=== PATIENT | male | born 1975 | race Caucasian/White ===

== ENCOUNTER 2018-04-29 11:10 | Inpatient (IN) | payer BC, OTHER ==
[~2018-04-29] VITALS: Ht 180.3 cm; Wt 78.0 kg
[2018-04-29] MEDS ORDERED: ISON300T4 PO (11:22)
[2018-04-29] MEDS ORDERED: ESCI10TA PO (11:23)
[2018-04-29] MEDS ORDERED: AMLO10TA6 PO (11:23)
[2018-04-29] MEDS ORDERED: MIRT30TA7 PO (11:24)
[2018-04-29] MEDS ORDERED: EMTR1TAB13 PO (11:26)
[2018-04-29] MEDS ORDERED: GABA-536 PO (11:27)
--- NOTE | 2018-04-29 11:40 | NUR ---
Pre-Admission Note Assessment done in intake office. Client doesn't appears intoxicated but appears anxious. He A/O x 4. He is ambulatory with steady gait, but complains of pain on feet 7/10, stating, "I was in a state of induced psychosis for at least 2-3 days and I just kept walking and walking." He has loud and pressured speech. He is here for medically supervised withdrawal from alcohol, Benzodiazepines and opioids. Client denies any hx of withdrawal-induced seizure. He has allergies PCN, Tramadol. VS BP= 135/96, P 113, RR 18, T 98.8, spO2 @ 95% on RA. Unit protocols explained. Client verbalized understanding. Admission process will continue in the unit.
[2018-04-29] MEDS ORDERED: PYRI50TA9 PO (12:02)
[2018-04-29] MEDS ORDERED: ACYC200C PO (12:02)
[2018-04-29] MEDS ORDERED: DIVA500T2 PO (12:02)
[2018-04-29] MEDS ORDERED: CLOT15CR63 TP (12:02)
[2018-04-29] MEDS ORDERED: BUTE12CR TP (12:02)
[2018-04-29] MEDS ORDERED: TEST75GE TP (12:02)
[2018-04-29] MEDS ORDERED: DIPH25TA62 PO (12:02)
[2018-04-29] MEDS ORDERED: one a day (12:02)
[2018-04-29] MEDS ORDERED: IBUP1TAB12 PO (12:02)
[2018-04-29] MEDS ORDERED: RALT400T PO (12:02)
[2018-04-29] MEDS ORDERED: TRET20CR TP (12:02)
--- NOTE | 2018-04-29 13:00 | NUR ---
ADMISSION Patient arrived on the unit at 1152, patient noted with unsteady gait, limping noted on one leg, per patient verbalized from walking around for days, his leg is sore. patient oriented to unit and educated regarding unit policies with good verbal understanding. Patient currently alert and oriented x4, BP: 135/96 HR: 113 R: 18 O2 SAT: 95% RA, T: 98.8. Patient admitted for medical supervised withdrawal of etoh/bzo/opiate. Patient also with substance use of: GHB, and Methamphetamine. Patient currently appears disheveled, unkempt, unshaven and noted with dirty finger nails and unwashed clothes. Patient has a anxious/worried facial expression noted with avoidant eye contact. Patient with flat affect and labile mood. Noted fidgety and exhibiting the following s/sx of withdrawal: elevated heart rate, flushed face, clammy skin, difficulty sitting still, fidgety, nasal congestion, moist eyes, yawning multiple times, tremors that can be felt, increase anxiety, agitation, chills, difficulty concentrating, increased emotional amplitude, and Perceptual disturbances. Patient with admitting COW score of: 11, and Admitting CIWA score of: 16. ALLERGIES: Penicillin, tree nuts, and tramadol SUBSTANCE USE HISTORY: 1. Xanax 2 mg PO daily, for the past two months, reports he first used at age of 17, typical withdrawal symptoms when not in use include: " i don't feel well, nausea, depressed, body aches" Last use: 3 or 4 days ago 2mg, as per patient. 2. ETOH-vodka 375ml 4-5 days a week, for the past 2 months, reports had his first drink at age 17, typical withdrawal symptoms include: I get hangovers, and feel sick to my stomach . Last use: 04/28/2018 375ml of vodka. 3. hydrocodone 90mg PO daily, for the past two months, reports he first used on/off since 2012. Typical withdrawal symptoms include: " I get extremely anxious, and i feel my blood pressure go up, and feel like in crawling out of my skin" Last used: 04/28/2018 90mg. 4. methamphetamine 1.5-2 grams smoked/IV daily for the past two moths, reports he first began using in 2012, last used: 04/28/2018, 1.5 grams. 5. GHB- 2.5 ml PO twice a week for the past two months, report he first began using in 2012, last used: 04/27/2018, 2.5ml. PRIMARY CARE PHYSICIAN: Dr. Ruby in [facility] PAST MEDICAL HISTORY: Anxiety diagnosed at age of 15-16, reports taking Depakote 500 mg TID, and Neurontin 400MG TID for anxiety. Depression diagnosed at age of 15-16, reports taking Lexapro 10mg daily. HIV positive Dx 2012, reports taking Isentress 400mg BID, and Descovy 200-25mg daily. Insomnia diagnosed 2012, reports taking Benadryl 25mg PO nightly , and Remeron 30mg PO nightly. PTSD DX: 2016 HTN DX: 2012- reports taking: Amlodipine 10mg PO QD. ADHD DX: Age 19 Asthma diagnosed as a child, Per patient Uses inhaler for asthma did not bring with him, verbalized I dont really have asthma attacks that often anymore, it probably happens once or twice a year History of: HEP C positive as per patient, I was hep c positive in 2013, but its been cleared now, I took medication for it Patient also reports taking Acyclovir 200mg PO daily for cold sore prevention, Vitamin B6 PO daily for supplement, AndroGel 75gram for low testosterone. Retin A face cream for skin care, Advil for cold as needed. Isoniazid 300mg( per patient was exposed and was prescribed Isoniazid to prevent TB, due to his HIV status). Brought from home Lotrimin, reports he does not use. PAST SURGICAL HISTORY: Lithotripsy in 2011 to remove kidney stones SEIZURE HISTORY: Patient reports History of seizures x3, during sobriety period, reports not related to drug use patient states They did studies and EEG test, and could not figure out why I was having seizures, All three I was sober and was not using anything, I didnt receive any medication because they couldn't figure out what was causing them Last seizure in 2017 as per patient. PSYCHIATRIC COMPLICATIONS: Patient verbalized: After I found out about my HIV diagnoses, I had many thoughts of committing suicide, I did attempt to commit suicide 4 times, by overdosing and ended up on life support, last year I had a bad overdose and was in renal failure and ended up in ICU, I allowed someone to inject me with a mixture of many drugs Patient denies currently feeling suicidal. Denies SI/HI. Denies having suicidal thoughts. Patient verbalized the past four days, I was in a methamphetamine psychosis, I was walking and walking for miles, I was hearing voices, I thought someone took my phone, the voices were telling me to do stupid random stuff, like telling me to walk then stop and turn around it was weird and I dont know how to describe it, it was bizarre Patient reports I'm still hearing some voices, but its gotten less Patient with positive auditory hallucinations, denies any visual hallucinations. Patient reports he does not know if he was placed on an involuntary psychiatric hospitalization. TREATMENT HISTORY: 7-8 treatment centers, most recently: 1. [facility] about a year ago, was there for 60 days. 2. [facility] in [place] in 2012, was there for 60 days 3. [facility] in 2015, was there for 30 days 4. [facility] in [place], [place] in 2014, was there for 30 days "I can't recall the names right now of the other ones" Patient reports he is here because "I need to stop using and get my head straightened out" I was weighing 200 pounds about a week in a half ago, and without trying because of my drug use I lost weight. Patient currently now weighs 172 lbs. Reports he does have a good support system, his family who he keeps in touch in [place] and friends that live here in [place]. Patient verbalized I first began drinking and using drugs because I realized it would help with my anxiety, and till this day it continues to help me cope with my anxiety, but I dont know when I started using meth, because that makes my anxiety worse Patient reports he decided to get help, because the psychosis I was in really scared me, then I realized I needed help. Patient reports he has never had success on quilting on his own, verbalized Jenny never attempted to try to stop using because since its so available, I just want to use, I do feel sick in the morning after drinking I do get pretty bad hang overs, but then I continue doing it Patient verbalized barriers for getting/staying sober are the stresses that are going on, I havent had stability going through the whole process of rehab, my biggest stumbling block I never have a stable job, or stable home, I dont have stability Patient reports consequences of using are Jenny lost everything, Jenny lost my friends, my family, my job, my home, pretty much everything Patient reports amount of times he has tried to get sober Jenny been to rehab 7 or 8 times, but I tend to relapse, I was sober for 1.5 years Patient reports positive history of blackouts, verbalized Jenny had a few, I was driving in [place] under the influence and by the time I realized it I was almost in [place], the other times I cant recall Patient verbalized I dont know what will be different this time, I cant answer that, but I do know my head needs to be straightened out again Patient was seen and examined by Dr. Chahal, with new admitting orders. MD was also given report to him, but nurse. Safety measures in place. Call light with in reach. Will continue to monitor.
[2018-04-29] MEDS: AMLODIPINE 10 MG TABLET PO SCH (13:45)
[2018-04-29] MEDS ORDERED: ISONIAZID 300 MG TABLET PO SCH (13:45)
[2018-04-29] MEDS ORDERED: Medication Not On Formulary EA (Pyridoxine Hcl (Vitamin B-6) 50 MG) PO SCH (13:45)
[2018-04-29 13:57] VITALS: BP 135/96
[2018-04-29] MEDS ORDERED: CLONIDINE HCL 0.1 MG TABLET PO PRN (14:00)
[2018-04-29] MEDS: FOLIC ACID 1 MG TABLET PO SCH (14:00)
[2018-04-29] MEDS ORDERED: DICYCLOMINE HCL 20 MG TABLET PO PRN (14:00)
[2018-04-29] MEDS ORDERED: HYDROXYZINE PAMOATE 25 MG CAPSULE PO PRN (14:00)
[2018-04-29] MEDS ORDERED: MAG HYDROX/AL HYDROX/SIMETH 30 ML LIQUID UDC PO PRN (14:00)
[2018-04-29] MEDS ORDERED: MAGNESIUM HYDROXIDE 30 ML LIQUID UDC PO PRN (14:00)
[2018-04-29] MEDS: THIAMINE HCL 100 MG TABLET PO SCH (14:00)
[2018-04-29] MEDS: PYRIDOXINE HCL 100 MG TABLET PO SCH (14:00)
[2018-04-29] MEDS ORDERED: IBUPROFEN 600 MG TABLET PO PRN (14:00)
[2018-04-29] MEDS ORDERED: LOPERAMIDE HCL 2 MG CAPSULE PO PRN ×2 (14:00)
[2018-04-29] MEDS ORDERED: THIAMINE HCL 200 MG/2 ML VIAL IM ONE (14:00)
[2018-04-29] MEDS ORDERED: diphenhydrAMINE 50 MG CAPSULE PO PRN (14:00)
[2018-04-29] MEDS: MULTIVITAMINS,THERAPEUTIC TABLET PO SCH (14:00)
[2018-04-29] MEDS ORDERED: ACETAMINOPHEN 325 MG TABLET PO PRN (14:00)
[2018-04-29] MEDS ORDERED: BUPRENORPHINE HCL 2 MG TAB.SUBL SL PRN (14:00)
[2018-04-29 14:37] LABS: *AMPHETAMINE, URINE POSITIVE (NEGATIVE); *BARBITURATE, URINE NEGATIVE (NEGATIVE); *CANNABINOID, URINE NEGATIVE (NEGATIVE); *COCCAINE, URINE NEGATIVE (NEGATIVE); *OPIATE, URINE NEGATIVE (NEGATIVE); *PHENCYCLIDINE SCREEN,URINE NEGATIVE (NEGATIVE)
[2018-04-29 14:38] LABS: BASOPHILS % (AUTO) 0.5 % (0.0-2.0); EOSINOPHILS # (AUTO) 0.1 K/uL (0.0-0.7); EOSINOPHILS % (AUTO) 1.7 % (0.0-7.0); HEMATOCRIT 48.3 % (36.7-47.1); HEMOGLOBIN 16.8 g/dL (12.5-16.3); LYMPHOCYTES # (AUTO) 1.7 K/uL (20.0-40.0); LYMPHOCYTES % (AUTO) 19.7 % (20.5-51.5); MEAN CORPUSCULAR HEMOGLOBIN 31.2 uug (23.8-33.4); MEAN CORPUSCULAR HGB CONC 35 g/dL (32.5-36.3); MEAN CORPUSCULAR VOLUME 89.7 fL (73.0-96.2); MONOCYTES # (AUTO) 1.2 K/uL (2.0-10.0); MONOCYTES % (AUTO) 13.7 % (0.0-11.0); NEUTROPHILS # (AUTO) 5.5 K/uL (1.8-8.9); NEUTROPHILS % (AUTO) 64.4 % (38.5-71.5); PLATELET COUNT (AUTO) 327 K/uL (152-348); RED BLOOD CELL COUNT(AUTO) 5.38 MIL/uL (4.06-5.63); WHITE BLOOD COUNT (AUTO) 8.6 K/uL (3.6-10.2)
[2018-04-29 14:50] LABS: ALANINE AMINOTRANSFERASE 48 U/L (16-63); ALKALINE PHOSPHATASE 95 U/L (50-136); AMYLASE 64 U/L (25-115); ASPARTATE AMINOTRANSFERASE 58 U/L (15-37); BILIRUBIN,TOTAL 2.1 mg/dL (0.2-1.0); CARBON DIOXIDE 24 mmol/L (21-32); CHLORIDE 100 mmol/L (98-107); CREATININE 1.4 mg/dL (0.6-1.3); GLUCOSE 91 mg/dL (74-106); LIPASE 801 U/L (73-393); MAGNESIUM 2.4 mg/dL (1.8-2.4); POTASSIUM 3.7 mmol/L (3.5-5.1); TOTAL PROTEIN, SERUM 8.3 g/dL (6.4-8.2); UREA NITROGEN, BLOOD 28 mg/dL (7-18)
--- NOTE | 2018-04-29 14:56 | NUR ---
PRN ATIVAN Patient presented with: elevated heart rate, flushed face, clammy skin, difficulty sitting still, fidgety, tremors that can be felt, increase anxiety, agitation, chills, difficulty concentrating, increased emotional amplitude, elevated heart rate and Perceptual disturbances, administered ativan 1 mg PO as ordered for s/sx of withdrawal. Will continue to monitor.
[2018-04-29 15:08] LABS: ETHANOL < 3 MG/DL (0-0)
[2018-04-29 15:53] LABS: THYROID STIMULATING HORMONE 0.661 mIU/mL (0.358-3.740)
--- NOTE | 2018-04-29 15:56 | NUR ---
ATIVAN REASSESSMENT Medication effective, patient reports decrease in perceptual disturbances, current ciwa score of: 15, will continue to monitor.
--- NOTE | 2018-04-29 16:30 | NUR ---
MD COMMUNICATION Isentress held at scheduled time of 1345, due to patient is scheduled to receive at 1700, per MD ok to adminstere at 1700 and hold current dose. Held folic Acid, Multivitamin, Vitamin b1, and vitamin b6, per MD to start medications tomorrow morning.
[2018-04-29 17:07] VITALS: BP 140/97
[2018-04-29] MEDS: ISONIAZID 100 MG TABLET PO SCH (17:09)
[2018-04-29] MEDS: ACYCLOVIR 200 MG CAPSULE PO SCH ×2 (17:09→21:16)
--- NOTE | 2018-04-29 17:11 | NUR ---
PRN SUBUTEX elevated heart rate, flushed face, clammy skin, difficulty sitting still, fidgety, nasal congestion, moist eyes, yawning multiple times, tremors that can be felt, increase anxiety, agitation, chills, difficulty concentrating, increased emotional amplitude, Cow score of: 15, Administered Subutex 4mg SL as ordered, will monitor effectiveness.
--- NOTE | 2018-04-29 17:41 | NUR ---
SUBUTEX REASSESSMENT Medication effective, decrease in COW score to 14, due to decrease heart rate, will continue to monitor.
[2018-04-29] MEDS: LORAZEPAM 1 MG TABLET PO PRN ×2 (18:38→21:58)
--- NOTE | 2018-04-29 19:05 | NUR ---
PSYCHIATRIST COMMUNICATION Patient verbalized that he has difficulty sleeping if he does not take his Remeron, call placed to Dr. Miller, per MD segovia for one time order of Remeron 50mg PO for sleep, Psychiatrist is unable to enter order into [facility] at this time, order was read back and verified, noted and carried out. Addendum: 04/29/18 at 1921 by CHICA SKELTON LVN clarification: Remeron 30 mg PO.
--- NOTE | 2018-04-29 19:06 | NUR ---
END OF SHIFT Continues under close observation, admitting Dx: etoh/bzo withdrawal. Patient was started on a 3 day Valium taper. First dose administered during shift. Patient noted isolative, prefers to stay in room, encouraged to socialize with peers, and attend group therapies/sessions to learn new coping skills to prevent relapse. Was noted during shift with blocking thoughts, and avoidant eye contact. Has sad and worried facial expression, flat affect, and labile mood. Patient presented exhibiting the following s/sx of withdrawal: fine tremors, barely sweating, increase anxiety and agitation, fidgety, fidgety, restless, difficulty concentrating, emotional volatility, increase emotional amplitude with last CIWA score of: 10, Received no PRN medications during shift. Patient refused PPD during shift reports he got it a few months ago, and it was negative. Safety measures are in place. Call light with in reach, will continue to monitor. Patient endorsed to police shift commander nurse, all pertinent information discussed. Addendum: 04/29/18 at 1908 by CHICA SKELTON LVN clarification: note above is for wrong patient, disregard.
--- NOTE | 2018-04-29 19:07 | NUR ---
END OF SHIFT Patient continues under close observation, admitting today with admitting diagnoses of bzo/etoh/opiate withdrawal. Patient is scheduled to begin a 5 day Ativan taper and 3 day Subutex taper tomorrow morning. Patient has medication available for s/sx of withdrawal as needed. Was administered PRN: Ativan 1mg and Subutex 4mg sl as ordered. Encouraged to increase PO fluid intake as tolerated. Patient noted exhibiting the following s/sx of withdrawal: elevated heart rate, flushed face, clammy skin, difficulty sitting still, fidgety, nasal congestion, moist eyes, yawning multiple times, tremors that can be felt, increase anxiety, agitation, chills, difficulty concentrating, increased emotional amplitude, and Perceptual disturbances, abdominal cramps. Patient with admitting COW last score of: 13, and Admitting CIWA score of: 15. Safety measures are in place. Will continue to monitor. Patient endorsed to restaurant shift leader nurse, all pertinent information was discussed.
--- NOTE | 2018-04-29 19:15 | NUR ---
Start of Shift Note: Patient is a 43 y.o male admitted on 04/29/18 for medically supervised withdrawal from Xanax, ETOH, & [place] use. Patient also reported use of Meth and GHB. Pt has a anxious/irritable mood. Appears disheveled andunkempt. Pt presents with anxiety, agitation, sweating, restlessness, and fine tremors. Pt reported mild auditory hallucinations, pt pt he hears some noises in the room. Pt to be started on a Subutex and ativan taper tomorrow. Last COWS 14 CIWA 15. Pt received PRN Ativan and Subutex during day shift. PRN medications available to manage symptoms of withdrawal. Pt stable at this time. Explained to patient current plan of care of the night and medication regimen. Both side rails up. Bed in the lowest position. Call light within pts reach. Will continue to monitor patient.
[2018-04-29 20:00] VITALS: BP 130/93
[2018-04-29] MEDS ORDERED: MIRTAZAPINE 15 MG TABLET PO ONE (21:00)
[2018-04-29] MEDS: ONDANSETRON ODT 4 MG TAB.RAPDIS SL PRN (22:00)
--- NOTE | 2018-04-29 22:00 | NUR ---
PRN Ativan/benadryl/Zofran Patient presents with nausea, anxiety, restlessness, sweating, fine tremors. Pt also requested for medication for sleep. PRN Ativan, Benadryl & Zofran administered as ordered. Will monitor for effectiveenss,
--- NOTE | 2018-04-29 23:00 | NUR ---
PRN reassessment Patient in bed and verbalized decreased in anxiety, restlessness & improved nausea. PRn medication effective. Will continue to monitor.
[2018-04-30] VITALS: BP 128/83
[2018-04-30 04:00] VITALS: BP 136/86
[2018-04-30 04:06] LABS: HEPATITIS B SURFACE AG Negative (Negative)
--- NOTE | 2018-04-30 07:06 | NUR ---
End of Shift Note: Patient is a 43 y.o male admitted on 04/29/18 for medically supervised withdrawal from Xanax, ETOH, & [place] use. Pt presents with anxiety, agitation, sweating, restlessness, and fine tremors. Pt reported mild auditory hallucinations. Pt to be started on a Subutex and Ativan taper today. Last CIWA 10. Pt received PRN Ativan, Benadryl & Zofran during my shift and all were effective. Pt remained stable and vitals noted WNL. All due medications given and all needs attended. Pt slept for a total of 4 hours. Fluid intake: 1210 ml. Voided 2x with no BM noted. Safety measures in place. Will endorse pt to day shift nurse.
--- NOTE | 2018-04-30 08:15 | NUR ---
BEGINNING OF SHIFT Patient endorsement report received from pan helper nurse, all pertinent information was discussed. Patient admitted yesterday during day shift, with admitting Dx: etoh/opiate/bzo withdrawal. patient is scheduled to begin a 3 day Subutex taper and 5 day Ativan taper. Per pan helper patient received PRN: Ativan, Benadryl and Zofran, per pan helper medications were effective. Patient with CIWA score of: 15, and COW score of: 14. Patient with difficulty falling asleep, and difficulty staying asleep. Slept for 4 hours. patient received awake, alert and oriented x4, presented with flat affect, and anxious mood. Patient was educated regarding plan of care for the day and medication regimen with good verbal understanding. will continue to monitor.
[2018-04-30] MEDS ORDERED: 3 DAY TAPER BUPRENORPHINE -SERENITY PROTOCOL SL PRN (09:00)
[2018-04-30] MEDS ORDERED: TUBERCULIN,PURIF.PROT.DERIV. 5 TU/0.1 ML TEST ID ONE (09:00)
[2018-04-30] MEDS ORDERED: 5 DAY TAPER OF LORAZEPAM -SERENITY PROTOCOL PO PRN (09:00)
--- NOTE | 2018-04-30 09:00 | NUR ---
COW/CIWA ASSESSMENT Patient in room, noted with avoidant eye contact, flat affect, sad/worried facial expression, and depressed/anxious mood. Patient noted exhibiting the following s/sx of withdrawal: elevated heart rate, flushed, difficulty sitting still, enlarged pupils, arthralgias, myalgias, moist eyes, nasal congestion, abdominal cramps, irritability, increase anxiety, perceptual disturbances. Patient with cow score of: 14, and ciwa score of: 15, as per patient continues to hear a muffled sound in his ears. Calming reassurance was provided, administered scheduled medications as ordered, MD aware of assessment scores. Will continue to monitor.
[2018-04-30 09:18] VITALS: BP 139/91
[2018-04-30] MEDS: LORAZEPAM 1 MG TABLET PO SCH ×4 (09:18→21:51)
[2018-04-30] MEDS: THIAMINE HCL 100 MG TABLET PO SCH (09:18)
[2018-04-30] MEDS: FOLIC ACID 1 MG TABLET PO SCH (09:18)
[2018-04-30] MEDS: MULTIVITAMINS,THERAPEUTIC TABLET PO SCH (09:18)
[2018-04-30] MEDS: ACYCLOVIR 200 MG CAPSULE PO SCH ×2 (09:19→21:52)
[2018-04-30] MEDS: AMLODIPINE 10 MG TABLET PO SCH (09:19)
[2018-04-30] MEDS: BUPRENORPHINE HCL 2 MG TAB.SUBL SL SCH ×2 (09:19→21:52)
[2018-04-30] MEDS: PYRIDOXINE HCL 100 MG TABLET PO SCH (09:19)
[2018-04-30] MEDS: ISONIAZID 100 MG TABLET PO SCH (09:30)
--- NOTE | 2018-04-30 10:00 | NUR ---
MD COMMUNICATION Relayed to Dr. Chahal that patient refused PPD, patient states " My doctor said I cannot have further TB skin test done, because since I was exposed to TB, it will show positive". Dr. Chahal was notified, patient currently also with ongoing Isoniazid as ordered. currently patient is afebrile, no cough/congestion noted. Per Dr. Chahal patient recently had CXR done and it was negative, no new orders at this time, will continue to monitor. Patient also refused, Isentress 400mg PO that was ordered in the AM, per patient MD who prescribed him that medication told him that he needs to take Isentress and Descovy together, patient did not bring home medication Descovy with him. MD also notified.
[2018-04-30 12:47] VITALS: BP 140/95
--- NOTE | 2018-04-30 13:00 | NUR ---
COW/CIWA ASSESSMENT Patient presents with the following s/sx: elevated heart rate, c/o chills, difficulty sitting still, enlarged pupils, arthralgias, myalgias, moist eyes, nasal congestion, abdominal cramps, irritability, increase anxiety, perceptual disturbances. Patient with cow score of: 14, and ciwa score of: 14, as per patient continues to hear a muffled sound in his ears. Calming reassurance was provided, administered scheduled medications as ordered, MD aware of assessment scores. Will continue to monitor.
[2018-04-30 17:00] VITALS: BP 153/81
--- NOTE | 2018-04-30 17:00 | NUR ---
COW/CIWA ASSESSMENT Patient presents with the following s/sx: elevated heart rate, c/o chills, difficulty sitting still, enlarged pupils, arthralgias, myalgias, moist eyes, nasal congestion, abdominal cramps, irritability, increase anxiety, perceptual disturbances. Patient with cow score of: 13, and ciwa score of: 14, as per patient continues to hear a muffled sound in his ears. Calming reassurance was provided, administered scheduled medications as ordered, MD aware of assessment scores. Will continue to monitor.
--- NOTE | 2018-04-30 19:14 | NUR ---
END OF SHIFT Patient alert and oriented x4, during shift. Continues under close observation, admitting Dx: etoh/opiate/bzo withdrawal. Patient began 1st day of 3 day Subutex taper and 1st day of 5 day Ativan taper, scheduled medications were administered as ordered. Relayed to Dr. Chahal that patient refused PPD, patient states " My doctor said I cannot have further TB skin test done, because since I was exposed to TB, it will show positive". Dr. Chahal was notified, patient currently also with ongoing Isoniazid as ordered. currently patient is afebrile, no cough/congestion noted. Per Dr. Chahal patient recently had CXR done and it was negative, no new orders at this time, will continue to monitor. Patient also refused, Isentress 400mg PO that was ordered as an AM and PM dose, per patient MD who prescribed him that medication told him that he needs to take Isentress and Descovy together, patient did not bring home medication Descovy with him. Patient was assisted by major case detective to re order medication. . Encouraged to increase PO fluid intake as tolerated. Patient noted exhibiting the following s/sx of withdrawal: elevated heart rate, flushed, difficulty sitting still, enlarged pupils, arthralgias, myalgias, moist eyes, nasal congestion, abdominal cramps, irritability, increase anxiety, perceptual disturbances. Patient with last cow score of: 14, and ciwa score of: 15, Safety measures are in place. Will continue to monitor. Patient endorsed to shift engineer nurse, all pertinent information was discussed. Addendum: 04/30/18 at 1917 by CHICA SKELTON LVN clarification: Last COW score of: 13, and Last CIWA score of: 14.
--- NOTE | 2018-04-30 19:53 | NUR ---
START OF SHIFT NOTE Rcvd report from outogin nurse. Pt is a 43 y/o male A/O to person, place, time, and purpose. Pt was admitted for medically supervised withdrawal from Benzodiazepines and ETOH. Pt is on day 1 of a 5 day Ativan and 3 day Subutex taper. Pt has been presenting w/ flushing, restlessness, body aches, stuffiness, abdominal cramps, tremors, sweats, lethargy, anxiety, depressed and withdrawn mood, and a flat affect. Pt rcvd no PRN medications during previous shift. Last CIWA 14 and COWS 13 @ 1600. Call light is within reach. Pt will continue to be monitored and needs met.
[2018-04-30 20:06] VITALS: BP 144/76
--- NOTE | 2018-04-30 20:09 | NUR ---
CIWA AND COWS ASSESSMENT CIWA 14 and COWS 13. Pt has been presenting w/ flushing, restlessness, body aches, stuffiness, abdominal cramps, tremors, sweats, lethargy, anxiety, depressed and withdrawn mood, and a flat affect. V/S: T:98.0, P:90, RR:16, SPO2:98, BP:144/70.
[2018-04-30] MEDS: MIRTAZAPINE 15 MG TABLET PO SCH (21:51)
[2018-04-30] MEDS: ARIPIPRAZOLE 5 MG TABLET PO SCH (21:59)
--- NOTE | 2018-05-01 00:07 | NUR ---
CIWA AND COWS DEFERRED. V/S REFUSED Pt is in bed w/ her eeys closed. Pt's respirations are unlabored and even.
--- NOTE | 2018-05-01 04:29 | NUR ---
CIWA AND COWS DEFERRED. V/S REFUSED Pt is in bed w/ his eyes closed. Pt's respirations are unlabored and even.
--- NOTE | 2018-05-01 07:00 | NUR ---
END OF SHIFT NOTE Endorsed pt to oncoming nurse. Pt is a 43 y/o male A/O to person, place, time, and purpose. Pt was admitted for medically supervised withdrawal from Benzodiazepines and ETOH. Pt completed day 1 of a 5 day Ativan and 3 day Subutex taper. Pt continues presenting w/ flushing, restlessness, body aches, stuffiness, abdominal cramps, tremors, sweats, lethargy, anxiety, depressed and withdrawn mood, and a flat affect. Pt rcvd no PRN medications during current shift. Pt denies any S/I or H/I. Pts fluid intake was 500ml and he slept for 7 hrs. Last CIWA 14 and COWS 13 @ 1999. Call light is within reach.
--- NOTE | 2018-05-01 07:30 | NUR ---
Start of shift note; Received report from night nurse. Patient is a 43 year old male admitted on 04/29/18 for Benzodiazepine, ETOH, Opiate withdrawal. Patient was placed on a 5 day Ativan and 3 day Subutex taper. Patient presented with anxiety, complaining of mild nausea, stomach cramps, fatigue, muscle aches, malaise, anhedonia, anxiety, intermittent sweats, restless legs. Educated patient regarding the importance of compliance to treatment and medication regime. Encouraged patient to participate in group activities and therapies. All safety measures secured. Will continue to monitor patient.
[2018-05-01 08:00] VITALS: BP 123/86
--- NOTE | 2018-05-01 08:00 | NUR ---
COWS/CIWA Assessment; Patient's COWS score is 18 and CIWA score is 17 manifested by anxiety, stomach cramps, tremors, restless legs, racing thoughts, inability to concentrate, fatigue and malaise. Patient is on 3 day Subutex and 5 day Ativan taper to help reduce withdrawal symptoms. Will continue to monitor patient.
[2018-05-01] MEDS: LORAZEPAM 1 MG TABLET PO SCH ×3 (08:47→21:13)
[2018-05-01] MEDS: BUPRENORPHINE HCL 2 MG TAB.SUBL SL SCH ×3 (08:47→21:14)
[2018-05-01] MEDS: AMLODIPINE 10 MG TABLET PO SCH (08:47)
[2018-05-01] MEDS: FOLIC ACID 1 MG TABLET PO SCH (08:47)
[2018-05-01] MEDS: THIAMINE HCL 100 MG TABLET PO SCH (08:47)
[2018-05-01] MEDS: ISONIAZID 100 MG TABLET PO SCH (08:47)
[2018-05-01] MEDS: PYRIDOXINE HCL 100 MG TABLET PO SCH (08:48)
[2018-05-01] MEDS: MULTIVITAMINS,THERAPEUTIC TABLET PO SCH (08:48)
[2018-05-01] MEDS: ACYCLOVIR 200 MG CAPSULE PO SCH ×2 (08:48→21:13)
[2018-05-01] MEDS ORDERED: CLON-418 PO (10:07)
[2018-05-01] MEDS ORDERED: METO75TA PO (10:07)
[2018-05-01] MEDS: DESCOVY PO SCH (10:46)
[2018-05-01 12:00] VITALS: BP 120/76
--- NOTE | 2018-05-01 12:00 | NUR ---
COWS/CIWA Assessment; Patient continues to have COWS score of 18 and CIWA score of 17 manifested by anxiety, stomach cramps, tremors, restless legs, racing thoughts, inability to concentrate, fatigue and malaise. Patient is on 3 day Subutex and 5 day Ativan taper to help reduce withdrawal symptoms. Will continue to monitor patient.
[2018-05-01] MEDS ORDERED: LIDOCAINE VISCUS 2% 15 ML UDC MM PRN (15:45)
[2018-05-01 16:00] VITALS: BP 122/72
--- NOTE | 2018-05-01 16:00 | NUR ---
COWS/CIWA Assessment; Patient continues to have COWS score of 15 and CIWA score of 14 manifested by anxiety, stomach cramps, tremors, restless legs, racing thoughts, inability to concentrate, fatigue and malaise. Patient is on 3 day Subutex and 5 day Ativan taper to help reduce withdrawal symptoms. Will continue to monitor patient.
--- NOTE | 2018-05-01 18:49 | NUR ---
End of shift note; Patient is AOX4, presented with anxiety, agitation, stomach cramps, inability to concentrate, muscle aches, generalized discomfort, tremors, diaphoresis, nausea. Patient remained compliant with treatment plan and medication regime. Patient participated in group activities and therapies. Patient's last COWS score is 15 and CIWA of 14 at 1600. No PRN medications given. All safety measures secured. Met all needs.
--- NOTE | 2018-05-01 19:43 | NUR ---
START OF SHIFT NOTE Rcvd report from outgoing nurse. Pt is a 43 male A/O to person, place, time, and purpose. Pt was admitted for medically supervised withdrawal from ETOH, Benzodiazepines, and Opiates. Pt is on day 2 of a 3 day Subutex and 5 day Ativan taper. Pt has been presenting w/ abdominal cramping, sweats, body aches, lethargy, anxiety, restlessness, depressed and withdrawn mood, and blunt affect. Pt rcvd no PRN medications during pervious shift. Last CIWA 15 and COWS 16 @ 1600. Call light is within reach. Pt will continue to be monitored and needs met.
[2018-05-01 20:10] VITALS: BP 137/89
--- NOTE | 2018-05-01 20:10 | NUR ---
CIWA AND COWS ASSESSMENT CIWA 15 and COWS 16. Pt has been presenting w/ abdominal cramping, sweats, body aches, lethargy, anxiety, restlessness, depressed and withdrawn mood, and blunt affect. V/S: T:97.9, P:101, RR:16, SPO2:96, BP:137/89.
[2018-05-01] MEDS: ARIPIPRAZOLE 5 MG TABLET PO SCH (21:13)
[2018-05-01] MEDS: MIRTAZAPINE 15 MG TABLET PO SCH (21:14)
--- NOTE | 2018-05-02 00:06 | NUR ---
CIWA AND COWS DEFERRED. V/S REFUSED Pt is in bed w/ his eyes closed. pt's respirations are unlabored and even.
[2018-05-02 06:40] LABS: BASOPHILS % (AUTO) 0.7 % (0.0-2.0); EOSINOPHILS # (AUTO) 0.3 K/uL (0.0-0.7); EOSINOPHILS % (AUTO) 4.8 % (0.0-7.0); HEMATOCRIT 42.2 % (36.7-47.1); HEMOGLOBIN 14.8 g/dL (12.5-16.3); MEAN CORPUSCULAR HEMOGLOBIN 31.5 uug (23.8-33.4); MEAN CORPUSCULAR HGB CONC 35 g/dL (32.5-36.3); MEAN CORPUSCULAR VOLUME 90.3 fL (73.0-96.2); MONOCYTES # (AUTO) 0.7 K/uL (2.0-10.0); MONOCYTES % (AUTO) 12.5 % (0.0-11.0); NEUTROPHILS # (AUTO) 2.3 K/uL (1.8-8.9); PLATELET COUNT (AUTO) 275 K/uL (152-348); RED BLOOD CELL COUNT(AUTO) 4.68 MIL/uL (4.06-5.63); WHITE BLOOD COUNT (AUTO) 5.3 K/uL (3.6-10.2)
[2018-05-02 06:52] LABS: BILIRUBIN,TOTAL 0.5 mg/dL (0.2-1.0); CREATININE 0.9 mg/dL (0.6-1.3); POTASSIUM 3.4 mmol/L (3.5-5.1); TOTAL PROTEIN, SERUM 6.9 g/dL (6.4-8.2)
--- NOTE | 2018-05-02 07:11 | NUR ---
END OF SHIFT NOTE Endorsed pt to oncoming nurse. Pt is a 43 male A/O to person, place, time, and purpose. Pt was admitted for medically supervised withdrawal from ETOH, Benzodiazepines, and Opiates. Pt completed day 2 of a 3 day Subutex and 5 day Ativan taper. Pt continues presenting w/ abdominal cramping, sweats, body aches, lethargy, anxiety, restlessness, depressed and withdrawn mood, and blunt affect. Pt denies any S/I or H/I. Pt rcvd no PRN medications during pervious shift. Pts fluid intake was 500ml and he slept for 8 hrs. Last CIWA 15 and COWS 16 @ 2000. Call light is within reach.
--- NOTE | 2018-05-02 07:40 | NUR ---
START OF SHIFT Endorse rcvd from ongoing nurse, client is in bed, on his L side, he appears with flushed face, clammy skin. he sounds asleep, easy to arouse, RR 16, even, non-labored. Room is unkept, several opened bottles of water, juice and snacks noted at bedside table. Last CIWA 15 / COWS 16 @ 1999. Client had an uneventful night, he slept 8 hrs. Seizure precautions in place. Call light within reach.
[2018-05-02 08:02] VITALS: BP 128/81
[2018-05-02] MEDS: LORAZEPAM 1 MG TABLET PO SCH ×4 (08:54→20:20)
[2018-05-02] MEDS: DESCOVY PO SCH (08:55)
[2018-05-02] MEDS: ISONIAZID 100 MG TABLET PO SCH (08:55)
[2018-05-02] MEDS: AMLODIPINE 10 MG TABLET PO SCH (08:55)
[2018-05-02] MEDS: FOLIC ACID 1 MG TABLET PO SCH (08:55)
[2018-05-02] MEDS: MULTIVITAMINS,THERAPEUTIC TABLET PO SCH (08:55)
[2018-05-02] MEDS: THIAMINE HCL 100 MG TABLET PO SCH (08:55)
--- NOTE | 2018-05-02 08:55 | NUR ---
WA 14 / COWS 15 Client is in room, he presents with anxious mood, restlessness, avoidant gaze, flushed face, clammy skin, tremors felt, goosebump, difficulty concentrating. Client report feeling anious, a sense of panic, irritable, poor appetite, nausea, stomach cramps,, chill, cold, and sweats. Schedule Subutex 2 mg SL, Ativan 1mg PO administered. Call light within reach.
[2018-05-02] MEDS: ACYCLOVIR 200 MG CAPSULE PO SCH ×2 (08:56→20:19)
[2018-05-02] MEDS: PYRIDOXINE HCL 100 MG TABLET PO SCH (08:56)
[2018-05-02] MEDS ORDERED: BUPRENORPHINE HCL 2 MG TAB.SUBL SL SCH (09:00)
--- NOTE | 2018-05-02 11:00 | NUR ---
MD Notification Lab values DOS 04/29/18 lipase 801 DOS 05/02/18 Potassium 3.4 No new orders at this time
[2018-05-02 12:00] VITALS: BP 140/85
--- NOTE | 2018-05-02 12:05 | NUR ---
CIWA / 10 Client continues to present with anxiety, mb increase P 94, BP 140/85, clammy skin, and flushed face. Client reports feeling feverish, chills, cold, fatigue, poor appetite, sweaty, and restless. Ativan 1mg PO administered,. Call light within reach.
[2018-05-02] MEDS ORDERED: RETIN A 0.05% TOP PRN (14:00)
--- NOTE | 2018-05-02 14:06 | NUR ---
Therapist prompted client to attend all group therapy sessions and client agreed to attend the upcoming group for this afternoon.
[2018-05-02] MEDS: METOPROLOL TARTRATE 50 MG TABLET PO SCH ×2 (14:07→20:19)
[2018-05-02] MEDS ORDERED: POTASSIUM CHLORIDE 20 MEQ TAB.PRT.SR PO ONE (15:00)
[2018-05-02 16:25] VITALS: BP 140/90
[2018-05-02] MEDS: ONDANSETRON ODT 4 MG TAB.RAPDIS SL PRN (16:30)
--- NOTE | 2018-05-02 16:30 | NUR ---
CIWA 12 / COWS 10 & PRN Bentyl 20mg PO for abdominal spasms Client continues to present with anxiety, irritability, agitation, clammy skin, and flushed face. Client reports feeling feverish, chills, cold, fatigue, poor appetite, sweaty, and restless. Ativan 1mg PO and above medication administered. Call light within reach
--- NOTE | 2018-05-02 17:12 | NUR ---
Communication: Pt requested to change his [place] schedule from BID to Q12H. Pt wants to take it at 0900 and 2100. MD made aware with new order to change schedule to 12H. Order noted and carried out.
--- NOTE | 2018-05-02 17:30 | NUR ---
Reassess PRN Bentyl 20mg, client reports slight relief from abdominal spasms. Call light within reach
--- NOTE | 2018-05-02 19:40 | NUR ---
END OF SHIFT Endorse client to incoming nurse, client is in room, a/o x 4. Client continues to present with agitation, anxiety, chills, clammy skin, depression, difficulty concentrating, emotional volatility, fatigue, tremors, muscle aches/cramps, and clammy skin. Last CIWA 12 1 @ 1600. Adequate PO fluid intake 1500 mL, void x 3. Client is compliant with 1/3 OF group therapy. Consumes 50-75% of meals. Call light within reach.
--- NOTE | 2018-05-02 19:51 | NUR ---
START OF SHIFT NOTE Rcvd report from outgoing nurse. Pt is a 43 y/o male A/O to person, place, time, and purpose. Pt was admitted for medically supervised withdrawal from ETOH, Benzodiazepines, and Opiates. Pt is on day 3 of a 5 day Ativan taper and he completed a 3 day Subutex taper. Pt has been presenting w/ anxious and depressed mood, blunt affect, abdominal cramping, sweats, and body aches.PRN Bentyl was given and noted effective by outgoing nurse. Last CIWA 12 and COWS 10 @ 1600. Call light is within reach. Pt will continue to be monitored and needs met.
[2018-05-02 20:05] VITALS: BP 125/79
--- NOTE | 2018-05-02 20:05 | NUR ---
CIWA AND COWS ASSESSMENT CIWA 13 and COWS 10. . Pt has been presenting w/ anxious and depressed mood, blunt affect, abdominal cramping, sweats, and body aches. V/S: T:98.3, P:76, RR;14, SPO2:98, BP:125/79.
[2018-05-02] MEDS: RALTEGRAVIR POTASSIUM 400 MG PO SCH (20:19)
--- NOTE | 2018-05-02 20:19 | NUR ---
PRN RETIN-A ADMINISTRATION Retin-A 0.05% given for application to skin on forehead and cheeks. This is pt's home med approved by MD and pharmacy. Will reassess pt in 1 hr.
[2018-05-02] MEDS: ARIPIPRAZOLE 5 MG TABLET PO SCH (20:20)
[2018-05-02] MEDS: MIRTAZAPINE 15 MG TABLET PO SCH (20:20)
--- NOTE | 2018-05-02 21:19 | NUR ---
PRN RETIN-A REASSESSMENT Medication noted effective by pt. Will continue to monitor.
--- NOTE | 2018-05-02 22:27 | NUR ---
START OF SHIFT NOTE Rcvd report from outgoing nurse. Pt is a 43 y/o male A/O to person, place, time, and purpose. Pt was admitted for medically supervised withdrawal from ETOH, Benzodiazepines, and Opiates. Pt is on day 3 of a 5 day Ativan taper and he completed a 3 day Subutex taper. Pt has been presenting w/ anxious and depressed mood, blunt affect, abdominal cramping, sweats, and body aches.PRN Bentyl was given and noted effective by outgoing nurse. Last CIWA 12 and COWS 10 @ 1600. Call light is within reach. Pt will continue to be monitored and needs met. Addendum: 05/02/18 at 2230 by YAEL FERGUSON RN DUPLICATE
--- NOTE | 2018-05-03 00:05 | NUR ---
CIWA AND COWS DEFERRED. V/S REFUSED Pt is in bed w/ his eyes closed. Pt's respirations are unlabored and even.
--- NOTE | 2018-05-03 04:20 | NUR ---
CIWA AND COWS DEFERRED. V/S REFUSED Pt is in bed w/ his eyes closed. pt's respirations are unlabored and even.
--- NOTE | 2018-05-03 07:12 | NUR ---
END OF SHIFT NOTE Endorsed pt to oncoming nurse. Pt is a 43 y/o male A/O to person, place, time, and purpose. Pt was admitted for medically supervised withdrawal from ETOH, Benzodiazepines, and Opiates. Pt completed day 3 of a 5 day Ativan taper and he completed a 3 day Subutex taper. Pt continues presenting w/ anxious and depressed mood, irritability, blunt affect, abdominal cramping, sweats, and body aches.PRN Retin-A given and used effectively. Pts fluid intake was 1375ml and he slept for 10 hrs. Last CIWA 13 and COWS 10 @ 1999. Call light is within reach.
[2018-05-03 08:00] VITALS: BP 129/89
--- NOTE | 2018-05-03 08:00 | NUR ---
START OF SHIFT Pt is a 43 yr old male, AA&Ox4. Pt was admitted on 04/29/18 for ETOH/Benzo/Opiate withdrawal and is on 5 day Ativan taper and completed a 3 day Subutex taper as ordered. Received report from shift boss nurse. No PRN's were given during the night. Pt slept for 10 hrs. Last COWS score was 10 and CIWA score was 13. Pt is currently c/o increase anxiety and agitation stating, "I'm stressed out, I have no money or a place to go after this". Pt is observed wtih flat affect and is blunt. Skin is warm and clammy to touch. Pt is avoidant and is unable to give eye contact. COWS score was 9 and CIWA score was 11 this morning. Pt was encouraged increase fluid intake for hydration. Safety precautions observed. Will continue to monitor.
[2018-05-03] MEDS: AMLODIPINE 10 MG TABLET PO SCH (09:11)
[2018-05-03] MEDS: PYRIDOXINE HCL 100 MG TABLET PO SCH (09:12)
[2018-05-03] MEDS: THIAMINE HCL 100 MG TABLET PO SCH (09:12)
[2018-05-03] MEDS: FOLIC ACID 1 MG TABLET PO SCH (09:12)
[2018-05-03] MEDS: LORAZEPAM 1 MG TABLET PO SCH ×3 (09:12→20:09)
[2018-05-03] MEDS: DESCOVY PO SCH (09:12)
[2018-05-03] MEDS: MULTIVITAMINS,THERAPEUTIC TABLET PO SCH (09:12)
[2018-05-03] MEDS: ACYCLOVIR 200 MG CAPSULE PO SCH ×2 (09:13→20:11)
[2018-05-03] MEDS: ISONIAZID 100 MG TABLET PO SCH (09:13)
[2018-05-03] MEDS: METOPROLOL TARTRATE 50 MG TABLET PO SCH ×2 (09:13→20:10)
[2018-05-03] MEDS: RALTEGRAVIR POTASSIUM 400 MG PO SCH ×2 (09:14→20:10)
[2018-05-03 12:00] VITALS: BP 124/86
--- NOTE | 2018-05-03 12:00 | NUR ---
CIWA/COWS ASSESSMENT pt is c/o anxiety, agitation, stuffy nose and sweats. Pt is observed with restless legs, fine tremors, flushed and clammy skin, flat affect and avoidant to eye contact. COWS score was 8 and CIWA score was 12. Encouraged increase fluid intake. will continue to monitor.
--- NOTE | 2018-05-03 14:06 | NUR ---
Therapist prompted client to attend all group therapy sessions.
[2018-05-03 16:00] VITALS: BP 123/69
[2018-05-03 17:46] LABS: CREATININE 0.9 mg/dL (0.6-1.3); POTASSIUM 3.7 mmol/L (3.5-5.1)
--- NOTE | 2018-05-03 19:10 | NUR ---
END OF SHIFT Pt is a 43 year male, AA&Ox4. Pt was admitted on 04/29/18 for EOTH/Benzo/Opiate withdrawal and is on 5 day Ativan taper and has completed 3 day Subutex taper. Pt has been observed with increase fatigue and isolative. Pt remained in his room throughout the day and refused to attend group therapy. Pt was c/o anxiety and agitation and he was observed with flat affect, avoidant in eye contact and flushed skin. Last COWS score was 8 and CIWA score was 10. No PRN's were given during the day. Pt was encouraged increase fluid intake for hydration. Endorsed to manufacturing supervisor 2nd shift nurse to continue with care.
--- NOTE | 2018-05-03 19:30 | NUR ---
Start of shift note Received report from day shift nurse. Patient is a 43 year old male admitted from ETOH/Benzodiazepine/Opiate withdrawal. Patient is on his 4th day of his Ativan taper and Subutex taper completed. Patient did not require PRN medication. Last COWS 8 and CIWA 10. Patient presents with flat affect, depressed mood, pressured speech, guarded, anxious and labile. Safety measures in place. Call light in reach. Will continue to monitor.
[2018-05-03 20:00] VITALS: BP 121/80
--- NOTE | 2018-05-03 20:00 | NUR ---
COWS and CIWA assessment Patient anxious, restless, flushed face, irritable , agitated, nauseated but no emesis, sensitive to light and sound and intermittent perspiration COWS 10 and CIWA 12.
[2018-05-03] MEDS: ARIPIPRAZOLE 5 MG TABLET PO SCH (20:09)
[2018-05-03] MEDS: MIRTAZAPINE 15 MG TABLET PO SCH (20:10)
[2018-05-04] VITALS: BP 115/70
--- NOTE | 2018-05-04 00:55 | NUR ---
COWS and CIWA assessment Patient awake and got some snacks. Patient had trouble sleeping, refusing to take Benadryl. Patient anxious and restless. COWS 7 and CIWA 8.
--- NOTE | 2018-05-04 01:00 | NUR ---
PRN Vistaril administration Patient anxious and restless. Will monitor for effectiveness
--- NOTE | 2018-05-04 04:00 | NUR ---
COWS and CIWA deferred Patient lying in bed with eyes closed. Respiration even and unlabored. Will continue to monitor
--- NOTE | 2018-05-04 07:23 | NUR ---
End of shift note Patient slept 6 hours . Fluid intake 855 ml. Voided x 2. No BM. Monitored patient throughout shift. Patient presented with flat affect, depressed mood, pressured speech, guarded, anxious and labile. Patient had difficulty sleeping but refused to take Benadryl. PRN Vistaril given for anxiety and restlessness. Safety measures in place. Call light within reach. Will continue to monitor. Last COWS 7 and CIWA 8.
--- NOTE | 2018-05-04 07:30 | NUR ---
START OF SHIFT NOTE Received report from night nurse, 43 year old male admitted for ETOH/BENZO/Opioid withdrawal. Patient continues with Ativan taper and completed his Subutex taper tolerated well. Per endorsement patient received PRN Vistaril effective per night nurse, last COWS07, CIWA-8. Received patient alert awake oriented x4 flat facial expression, c/o of anxiety, agitation. Patient is due for schedule medications. All safety measures in place. Will cont to monitor.
[2018-05-04 08:00] VITALS: BP 106/61
[2018-05-04] MEDS: MULTIVITAMINS,THERAPEUTIC TABLET PO SCH (08:23)
[2018-05-04] MEDS: FOLIC ACID 1 MG TABLET PO SCH (08:23)
[2018-05-04] MEDS: THIAMINE HCL 100 MG TABLET PO SCH (08:23)
[2018-05-04] MEDS: LORAZEPAM 1 MG TABLET PO SCH ×2 (08:23→20:26)
--- NOTE | 2018-05-04 08:23 | NUR ---
CIWA/COWS ASSESSMENT Patient presented with flat facial expression, c/o of anxiety, agitation, restlessness, fatigue, bilateral hand tremors, sweats, chills, CIWA-10, COWS-10 noted. Patient was given his scheduled medications will cont to monitor.
[2018-05-04] MEDS: AMLODIPINE 10 MG TABLET PO SCH (08:24)
[2018-05-04] MEDS: METOPROLOL TARTRATE 50 MG TABLET PO SCH ×2 (08:25→20:27)
[2018-05-04] MEDS: ACYCLOVIR 200 MG CAPSULE PO SCH ×2 (08:25→20:27)
[2018-05-04] MEDS: RALTEGRAVIR POTASSIUM 400 MG PO SCH ×2 (08:25→20:26)
[2018-05-04] MEDS: PYRIDOXINE HCL 100 MG TABLET PO SCH (08:25)
[2018-05-04] MEDS: ISONIAZID 100 MG TABLET PO SCH (08:25)
[2018-05-04] MEDS: DESCOVY PO SCH (08:26)
[2018-05-04] MEDS: ONDANSETRON ODT 4 MG TAB.RAPDIS SL PRN ×2 (09:18→20:28)
--- NOTE | 2018-05-04 09:18 | NUR ---
PRN ZOFRAN Patient came to nursing station c/o of nausea no emesis at this time. PRN Zofran 4mg SL given as ordered. Will cont to monitor.
--- NOTE | 2018-05-04 09:48 | NUR ---
ZOFRAN REASSESSMENT Per patient nausea improved Zofran was effective.
[2018-05-04 12:00] VITALS: BP 100/58
--- NOTE | 2018-05-04 12:00 | NUR ---
CIWA/COWS ASSESSMENT CIWA-9, COWS-8 noted. Patient continues to exhibits s/s of anxiety, agitation, fatigue, bilateral hand tremors, sweats. Encourage patient to attend groups activities to learn new coping. Will cont to monitor.
--- NOTE | 2018-05-04 14:36 | NUR ---
Therapist prompted client to attend all group therapy sessions.
[2018-05-04 16:00] VITALS: BP 99/62
--- NOTE | 2018-05-04 16:00 | NUR ---
CIWA/COWS ASSESSMENT CIWA-10, COWS-9 noted. Patient continues to exhibits s/s of labile facial expression, anxiety, agitation, fatigue, bilateral hand tremors, sweats, anhedonia,. Encourage patient to attend groups activities to learn new coping. Will cont to monitor.
--- NOTE | 2018-05-04 19:17 | NUR ---
END OF SHIFT NOTE Gave report to night nurse, Patient continues with 5days Ativan and 5 days Subutex taper completed tolerated well. During shift patient received scheduled medications alone with PRN Zofran, Bentyl, Motrin, Clonidine, Imodium noted to be effective. Patient did not attend any groups activities. Patient continues to presented with anxiety, agitation restless, depressed mood, flat affect, anhedonia. Last CIWA - 10 COWS- 9. All safety measures in place. Patient endorsed to night nurse in stable condition.
--- NOTE | 2018-05-04 19:30 | NUR ---
Start of shift note Received report from day shift nurse. Patient is a 43 year old male for ETOH /Benzo/Opiate withdrawal. Patient is on 5th day of his 5 day Ativan taper. Subutex taper completed. Patient was given PRN Zofran. Last COWS 9 and CIWA 10. Patient alert and oriented x 4. Patient presents with flat affect, depressed mood, sad, worried, unshaven, disheveled, restricted and guarded. Safety measures in place. Call light within reach. Will continue to monitor.
[2018-05-04 20:00] VITALS: BP 100/64
--- NOTE | 2018-05-04 20:00 | NUR ---
COWS and CIWA assessment Patient presents with anxiety, restless,irritable, intermittent perspiration, fatigue, worried and nauseated but no emesis. COWS 8 and CIWA 11.
[2018-05-04] MEDS: ARIPIPRAZOLE 5 MG TABLET PO SCH (20:26)
[2018-05-04] MEDS: MIRTAZAPINE 15 MG TABLET PO SCH (20:27)
--- NOTE | 2018-05-04 21:58 | NUR ---
PRN Zofran SL administration Patient nauseated but no emesis . Will monitor for effectiveness
--- NOTE | 2018-05-04 22:28 | NUR ---
PRN Zofran re-assessment Patient states Zofran helpful. Nausea improved
[2018-05-05] VITALS: BP 102/60
[2018-05-05 04:00] VITALS: BP 100/54
--- NOTE | 2018-05-05 07:19 | NUR ---
End of shift note Patient slept 11 hours. Fluid intake 710 ml. Voided x 1. BM x 1. Patient presented with flat affect, depressed mood, sad, worried, unshaven, disheveled, restricted, guarded, nauseated , anxious and restless. PRN Benadryl given for sleep. Patient isolative and withdrawn. Safety measures in place. Call light in reach. Will continue to monitor. Last COWS 8 and CIWA 11.
--- NOTE | 2018-05-05 07:25 | NUR ---
Start Of Shift Report received from shoeshiner nurse. Patient is a 43 year old male for ETOH /Benzo/Opiate withdrawal. Patient has completed his 5 day Ativan taper as well as his 3 day Subutex taper. Per shoeshiner nurse pt's last CIWA was 11 and COWS was an 8. Upon start of shift pt noted laying in bed with his eyes closed resting, breathing even and unlabored. Pt appears anxious, sweaty and flushed. During assessment, pt is AOx3. Lung sounds clear bilaterally. Radial pulse is regular and non-bounding. Abdomen soft and non-tender. Pt's skin is warm and intact. pt denies any pain at the moment. Encouraged pt to drink plenty of fluids to keep hydrated and help the detox process. Pt received PRN Zofran last night which was effective per shoeshiner nurse, pt slept a total of 5 hours last night. Bed in lowest position. Side rails up x2. Call light functioning and within reach. All needs attended and met. Will continue to monitor.
[2018-05-05 08:00] VITALS: BP 112/76
--- NOTE | 2018-05-05 08:00 | NUR ---
COWS 9 CIWA 11 Pt has diaphoresis, flushed face anxiety and restlessness. pt has generalized fatigue Pt encouraged to drink more fluids to help with detox process. Will continue to monitor, support and encourage according to plan of care
[2018-05-05] MEDS: MULTIVITAMINS,THERAPEUTIC TABLET PO SCH (09:00)
[2018-05-05] MEDS: AMLODIPINE 10 MG TABLET PO SCH (09:47)
[2018-05-05] MEDS: PYRIDOXINE HCL 100 MG TABLET PO SCH (09:48)
[2018-05-05] MEDS: RALTEGRAVIR POTASSIUM 400 MG PO SCH ×2 (09:48→20:38)
[2018-05-05] MEDS: ACYCLOVIR 200 MG CAPSULE PO SCH ×2 (09:48→20:38)
[2018-05-05] MEDS: ISONIAZID 100 MG TABLET PO SCH (09:48)
[2018-05-05] MEDS: DESCOVY PO SCH (09:48)
[2018-05-05] MEDS: FOLIC ACID 1 MG TABLET PO SCH (09:48)
[2018-05-05] MEDS: THIAMINE HCL 100 MG TABLET PO SCH (09:49)
[2018-05-05] MEDS: METOPROLOL TARTRATE 50 MG TABLET PO SCH ×2 (09:49→20:39)
[2018-05-05 12:00] VITALS: BP 120/69
--- NOTE | 2018-05-05 12:00 | NUR ---
COWS 6 CIWA 10 Pt has diaphoresis, anxiety and restlessness. Pt complains of nausea but didn't want any medication for it at the moment Pt encouraged to drink more fluids to help with detox process. Pt instructed to contact nurse in case nausea becomes worse, Will continue to monitor, support and encourage according to plan of care.
[2018-05-05] MEDS: ONDANSETRON ODT 4 MG TAB.RAPDIS SL PRN ×2 (12:57→20:44)
--- NOTE | 2018-05-05 12:58 | NUR ---
PRN Medication Pt. laying in his bed and complaining of nausea. No episodes of emesis at this time. Pt. given PRN Zofran to manage withdrawal symptoms. Will continue to monitor pt. for mediation effectiveness and safety.
[2018-05-05] MEDS ORDERED: AMLO10TA6 PO (13:38)
--- NOTE | 2018-05-05 13:58 | NUR ---
PRN Reassessment Medication effective pt reported feeling much better and no longer feeling nauseated, all need met will continue to monitor.
--- NOTE | 2018-05-05 15:24 | NUR ---
Therapist prompted client to attend group therapy.
[2018-05-05 16:00] VITALS: BP 105/63
--- NOTE | 2018-05-05 19:44 | NUR ---
End of Shift Report given to shift supervisor rn nurse, Plan of care followed, Vital signs monitored closely Q4H. Withdrawals symptoms were closely monitored, medications given as schedule. Initial CIWA 11 COWS 9. Pt encouraged adequate PO fluid intake as tolerated. Pt presented with sweats, flushed face, anxiety, fatigue and tremors during the day. Pt received all of his scheduled medications. Pt received PRN Zofran for nausea during the day which was effective per pt report. Last CIWA was a 9 COWS 6. Per Pt Ativan and Subutex have been working well at controlling the withdrawal symptoms. Pt ate all of his meals. Pt attended all of the groups and activities to learn new coping skills to prevent relapse. Pt denies any SI/HI. All safety measures in place, bed in lowest locked position, call light within reach. All needs met and attended.
--- NOTE | 2018-05-05 19:45 | NUR ---
Start of shift note Received report from day shift nurse. Pt is a 43 yo male, A+Ox4, presenting to [facility] for ETOH/Benzo/Opiate withdrawal. Pt was also using Methamphetamines and GHB. Pt noted to be restless, agitated, and anxious. Pt has HX of anxiety, depression, HIV, insomnia, PTSD, HTN, ADHD, asthma, and Hep C which will be monitored during shift. Pt is on 5 day Ativan and 3 day Subutex tapers, tolerated well. Respirations even and unlabored. Will continue to monitor.
[2018-05-05 20:14] VITALS: BP 121/75
--- NOTE | 2018-05-05 20:14 | NUR ---
COWS and CIWA Assessment COWS: 5 and CIWA: 7. Pt noted with pulse 72, chills, sweat on face, restlessness, stomach cramps, yawning, anxiety, agitation, and nausea. Respirations even and unlabored. will continue to monitor.
[2018-05-05] MEDS: ARIPIPRAZOLE 5 MG TABLET PO SCH (20:39)
[2018-05-05] MEDS: MIRTAZAPINE 15 MG TABLET PO SCH (20:39)
--- NOTE | 2018-05-05 20:44 | NUR ---
PRN Zofran PT c/o nausea and requested for PRN Zofran. Medication given and tolerated well. Will reassess within 1 HR. Will continue to monitor.
--- NOTE | 2018-05-05 21:40 | NUR ---
PRN Zofran Reassessment Medication effective. Pt expresses reduction of nausea. No s/s of ASE noted at this time. Respirations even and unlabored. Will continue to monitor.
--- NOTE | 2018-05-06 00:47 | NUR ---
V/S refused and COWS and CIWA Assessment deferred for sleep. Respirations even and unlabored. Will continue to monitor.
--- NOTE | 2018-05-06 04:35 | NUR ---
V/S refused and COWS and CIWA Assessment deferred for sleep. Respirations even and unlabored. Will continue to monitor.
--- NOTE | 2018-05-06 07:00 | NUR ---
End of shift note Pt was continuously noted with agitation, restlessness, and anxiety. Pt remained in room for majority of shift except to get food from the kitchen and to go smoke on smoking patio. Pt was given PRN Zofran @2043. Pt has completed 5 day Ativan and 3 day Subutex tapers, tolerated well, and is due for discharge today. Pt slept for a total of 9 HRS. Last COWS: 5 and Last CIWA: 7 @2013. Respirations even and unlabored. Will endorse to day shift nurse.
--- NOTE | 2018-05-06 07:52 | NUR ---
BEGINNING OF SHIFT Patient endorsement report received from finish production manager nurse, all pertinent information discussed. Patient with admitting Dx: etoh/bzo/opiate withdrawal. Patient with substance use of: methamphetamine, and GHB. Patient completed 5 day Ativan and completed 3 day Subutex taper as ordered. Patient is scheduled to be discharged this morning, received patient awake alert and oriented x4, noted self motivated towards sobriety, educated regarding plan of care for the day and morning medication regimen, will continue to monitor. Patient received PRN: Zofran during finish production manager, last COW score of: 5, and last CIWA score of: 7. Patient slept for 9 hours. Safety measures are in place. call light kept with in reach, will continue to monitor.
[2018-05-06 08:36] VITALS: BP 119/80
[2018-05-06] MEDS: FOLIC ACID 1 MG TABLET PO SCH (08:53)
[2018-05-06] MEDS: AMLODIPINE 10 MG TABLET PO SCH (08:53)
[2018-05-06] MEDS: MULTIVITAMINS,THERAPEUTIC TABLET PO SCH (08:53)
[2018-05-06] MEDS: THIAMINE HCL 100 MG TABLET PO SCH (08:53)
[2018-05-06 08:54] VITALS: BP 119/80
[2018-05-06] MEDS: PYRIDOXINE HCL 100 MG TABLET PO SCH (08:54)
[2018-05-06] MEDS: METOPROLOL TARTRATE 50 MG TABLET PO SCH (08:54)
[2018-05-06] MEDS: RALTEGRAVIR POTASSIUM 400 MG PO SCH (08:54)
[2018-05-06] MEDS: ISONIAZID 100 MG TABLET PO SCH (08:54)
[2018-05-06] MEDS: ACYCLOVIR 200 MG CAPSULE PO SCH (08:54)
[2018-05-06] MEDS: DESCOVY PO SCH (09:00)
[2018-05-06] MEDS: ONDANSETRON ODT 4 MG TAB.RAPDIS SL PRN (09:01)
--- NOTE | 2018-05-06 09:30 | NUR ---
DISCHARGE Patient discharged off the unit at 0930, in stable condition, and not in any apparent acute distress. Prior to discharge patient provided with education and teaching regarding all discharge instructions, with good verbal understanding. Patient was administered all due medications, except Descovy due to patient refused, verbalized " It makes me more nauseous, and I already feel nauseous, I usually take that medication at night, I will take it tonight" MD was notified. Patient was also administered Zofran at 0901 due to nausea, as per patient reports his home prescribed medications make him nauseous, no episodes of vomiting were noted. Medication was effective, at time of discharge, patient verbalized no longer feeling nauseous. Patient vital signs WNL, last cow score of: 4, and last ciwa score of: 5. Patients home medications, prescriptions, and discharge instructions were placed in patients personal duffel bag. Patient off the unit at 0930.
== END 2018-05-06 09:30 | disposition other institution (70) | DRG 895 ==
LOC: SRC 11:10
PROVIDERS: ADMIT Family Medicine Addiction Medicine; ATTEND Family Medicine Addiction Medicine
PROC: HZ2ZZZZ Detoxification Services for Substance Abuse Treatment (ICD-10-PCS; principal; 2018-04-29)
PROC: HZ41ZZZ Group Counseling for Substance Abuse Treatment, Behavioral (ICD-10-PCS; 2018-05-01)
PROC: HZ31ZZZ Individual Counseling for Substance Abuse Treatment, Behavioral (ICD-10-PCS; 2018-05-02)
DX: F10.232 Alcohol dependence with withdrawal with perceptual disturbance (principal); F13.230 Sedative, hypnotic or anxiolytic dependence with withdrawal, uncomplicated; F11.23 Opioid dependence with withdrawal; Y90.0 Blood alcohol level of less than 20 mg/100 ml; Z91.5 Personal history of self-harm; E78.5 Hyperlipidemia, unspecified; Z59.1 Inadequate housing; J45.20 Mild intermittent asthma, uncomplicated; F90.9 Attention-deficit hyperactivity disorder, unspecified type; G47.00 Insomnia, unspecified; Z87.442 Personal history of urinary calculi; F32.9 Major depressive disorder, single episode, unspecified; F43.10 Post-traumatic stress disorder, unspecified; F17.210 Nicotine dependence, cigarettes, uncomplicated; I10 Essential (primary) hypertension; F16.90 Hallucinogen use, unspecified, uncomplicated; E29.1 Testicular hypofunction; F15.229 Other stimulant dependence with intoxication, unspecified; G40.409 Other generalized epilepsy and epileptic syndromes, not intractable, without status epilepticus
CPT/HCPCS: 36415; 70030-TC; 80307; 80324; 83690; 83735; 84443; 85025; 86580; 86592; 86705; 86803; 87340; 87806; A4663; G0480; J3411; Q0162; Q0163